=== PATIENT | female | born 1945 | race Caucasian/White ===

== ENCOUNTER 2017-11-21 14:39 | Emergency (ER) | payer OTHER ==
[~2017-11-21] VITALS: Ht 160 cm; Wt 62.7 kg
[~2017-11-21 14:39] MED LIST: AMLO2.5T3 PO; ASPI-496 PO; CIME200T6 PO; DIPH25CA61 PO; HYDR-3237 PO; HYDR-3240 PO; LEVO75TA5 PO; LISI-167 PO; LISI1TAB3 PO; PRED5TAB PO; SIMV40TA3 PO; UBID1CAP43 PO
[2017-11-21 16:28] LABS: BASOPHILS # (AUTO) 0.01 x10^3/uL (0-0.1); BASOPHILS % (AUTO) 0 % (0-1); EOSINOPHILS # (AUTO) 0.05 x10^3/uL (0-0.4); EOSINOPHILS % (AUTO) 1 % (1-7); LYMPHOCYTES # (AUTO) 2.17 x10^3/uL (1-3.4); LYMPHOCYTES % (AUTO) 27 % (22-44); MD NO; MEAN CORPUSCULAR HEMOGLOBIN 31.2 pg (27.0-34.8); MEAN CORPUSCULAR HGB CONC 34.1 g/dL (32.4-35.8); MEAN CORPUSCULAR VOLUME 91.6 fL (80-100); MEAN PLATELET VOLUME 8.5 fL (7.4-10.4); MONOCYTES # (AUTO) 0.41 x10^3/uL (0.2-0.8); MONOCYTES % (AUTO) 5 % (2-9); NEUTROPHILS # (AUTO) 5.27 x10^3/uL (1.8-6.8); NEUTROPHILS % (AUTO) 67 % (42-75); PLATELET COUNT 180 x10^3/uL (130-400); RED BLOOD COUNT 4.49 x10^6/uL (3.82-5.3); RED CELL DISTRIBUTION WIDTH 12.7 % (9.6-15.2)
[2017-11-21 16:38] LABS: ALBUMIN 3.9 g/dL (3.4-5.0); ANION GAP 11 mmol/L (5-15); CALCIUM 9.3 mg/dL (8.5-10.1); CHLORIDE 108 mmol/L (98-107); CREATININE 1.02 mg/dL (0.55-1.02)
[2017-11-21 16:44] LABS: TROPONIN I 0.022 ng/mL (0.000-0.045)
[2017-11-21 18:01] VITALS: BP 140/68
== END 2017-11-21 18:09 | disposition home or self-care (01) ==
LOC: ED 17:45
DX: M25.511 Pain in right shoulder (principal); I10 Essential (primary) hypertension
CPT/HCPCS: 36415; 80048; 82040; 84484; 85025; 93005; 99285

== ENCOUNTER → 2017-12-04 | Outpatient (CLI) | payer OTHER ==
[~2017-12-04] MED LIST changes: +LIDOCAINE-MPF 1%, 5ML ONE
== END | disposition home or self-care (01) ==
LOC: RAD 09:58
PROVIDERS: ATTEND Nurse Practitioner Family
DX: K11.8 Other diseases of salivary glands (principal); R59.1 Generalized enlarged lymph nodes
CPT/HCPCS: 42400; 76942; 88305; 88341; 88342; G0461

== ENCOUNTER 2018-06-16 13:37 | Outpatient (CLI) | payer MEDICARE ==
[~2018-06-16 13:37] MED LIST changes: -AMLO2.5T3 PO; +AMLO2.5T5 PO; -LIDOCAINE-MPF 1%, 5ML ONE
[2018-06-16] MEDS ORDERED: OMNIPAQUE 350 MG/ML, 100ML BOTTLE ONE (15:19)
== END 2018-06-16 23:59 | disposition home or self-care (01) ==
LOC: CFH 13:37
PROVIDERS: ATTEND Genetic Counselor, MS
DX: R22.1 Localized swelling, mass and lump, neck (principal)
CPT/HCPCS: 70491; Q9967